=== PATIENT | male | born 1940 | race Caucasian/White ===

== ENCOUNTER → 2024-09-14 | Outpatient (CLI) | payer MEDICARE ==
[~2024-09-14] MED LIST: AMOX-426 PO; ASPI-556 PO; AZIT500T4 PO; BRIM5DRO2 OP; FERR159T2 PO; HYDR25TA PO; LATA2.5D14 OP; LOSA50TA64 PO; METF-444 PO; METO-391 PO; OSEL75 PO; PRAV20TA4 PO; PRED20B PO
--- NOTE | 2024-09-14 16:54 | HMCIMG ---
ABD 1VW HISTORY: Renal stone COMPARISON: None FINDINGS: A frontal projection of the abdomen was obtained. Evaluation for renal stone is limited due to overlying bowel gas. Questionable round density is seen adjacent to it is less muscle on the right at L3 with renal stone not completely excluded. A nonspecific bowel gas pattern is seen. Fecal material is seen in the colon. Degenerative changes of the thoracolumbar spine are noted. IMPRESSION: 1. A nonspecific bowel gas pattern is seen. Fecal material in the colon. Limited evaluation of stone.
== END | disposition home or self-care (01) ==
LOC: RAH 11:03
PROVIDERS: ATTEND Family Medicine
DX: N20.0 Calculus of kidney (principal); M47.815 Spondylosis without myelopathy or radiculopathy, thoracolumbar region
CPT/HCPCS: 74018